=== PATIENT | male | born 1975 | race Caucasian/White ===

== ENCOUNTER → 2019-11-13 | Outpatient (CLI) | payer OTHER ==
[~2019-11-13] MED LIST: COLA100C5 PO; LISI-538 PO; NOXI1TAB PO; OMEP40CA97 PO; ROSU20TA5 PO
== END ==
LOC: M LABSMTC 11:27
PROVIDERS: ATTEND Anesthesiology
DX: Z01.818 Encounter for other preprocedural examination (principal); Z11.59 Encounter for screening for other viral diseases
CPT/HCPCS: C9803; U0003

== ENCOUNTER 2019-11-16 11:09 | Day surgery (SDC) | payer OTHER ==
[~2019-11-16] VITALS: Ht 188 cm; Wt 102.9 kg
[~2019-11-16 11:09] MED LIST changes: +NS 1,000 ML IV ONE
[2019-11-16] MEDS ORDERED: propofoL 200 MG/20 ML VIAL As Ordered ONE ×2 (11:41→12:30)
[2019-11-16] MEDS ORDERED: LIDOCAINE 2% 100MG/5ML SDV (FOR ANES.) As Ordered ONE (12:07)
[2019-11-16] MEDS ORDERED: fentaNYL 100 MCG/2 ML INJECTION (J3010) As Ordered ONE (12:30)
--- NOTE | 2019-11-16 12:49 | ROOR ---
Patient Name: Bobby Begum Procedure Date: 11/16/2019 12:29 PM Date of : 1975 Age: 43 Room: [facility] Gender: Male Note Status: Finalized Procedure: Upper Endoscopy + Biopsies Indications: Heartburn, Exclusion of De Leon's esophagus Providers: Madan Reyes MD Referring MD: [facility], Admin. Requesting Provider: Medicines: Monitored Anesthesia Care Complications: No immediate complications. Procedure: Pre-Anesthesia Assessment: - The heart rate, respiratory rate, oxygen saturations, blood pressure, adequacy of pulmonary ventilation, and response to care were monitored throughout the procedure. The Endoscope was introduced through the mouth, and advanced to the second part of duodenum. The upper GI endoscopy was accomplished without difficulty. The patient tolerated the procedure well. Findings: The Z-line was irregular and was found 40 cm from the incisors. Multiple biopsies were obtained with cold forceps for evaluation to rule out De Leon's Esophagus randomly at the gastroesophageal junction. A small hiatal hernia was present. No other significant abnormalities were identified in a careful examination of the stomach. Biopsies were taken with a cold forceps in the gastric antrum for Helicobacter pylori testing. The exam of the duodenum was otherwise normal. Impression: - Z-line irregular, 40 cm from the incisors. - Small hiatal hernia. - Multiple biopsies were obtained at the gastroesophageal junction. - Biopsies were taken with a cold forceps for Helicobacter pylori testing. - The examination was otherwise normal. Recommendation: - Patient has a contact number available for emergencies. The signs and symptoms of potential delayed complications were discussed with the patient. Return to normal activities tomorrow. Written discharge instructions were provided to the patient. - High fiber diet. - Discharge patient to home. - Follow an antireflux regimen. - Continue present medications. - Await pathology results. - Telephone GI clinic for pathology results in 1 week. - Return to referring physician. - The findings and recommendations were discussed with the patient's family. Madan Reyes MD Madan Reyes MD 11/16/2019 12:49:27 PM Electronically signed by Madan Reyes MD Number of Addenda: 0 Note Initiated On: 11/16/2019 12:29 PM Estimated Blood Loss: Estimated blood loss: none.
--- NOTE | 2019-11-16 13:07 | ROOR ---
Patient Name: Bobby Begum Procedure Date: 11/16/2019 12:30 PM Date of : 1975 Age: 43 Room: [facility] Gender: Male Note Status: Finalized Procedure: Total Colonoscopy to Cecum + ileoscopy + Bx Indications: Rectal bleeding, Abdominal pain, Change in bowel habits Providers: Madan Reyes MD Referring MD: [facility], Admin. Requesting Provider: Medicines: Monitored Anesthesia Care Complications: No immediate complications. Procedure: Pre-Anesthesia Assessment: - The heart rate, respiratory rate, oxygen saturations, blood pressure, adequacy of pulmonary ventilation, and response to care were monitored throughout the procedure. The Colonoscope was introduced through the anus and advanced to the terminal ileum, with identification of the appendiceal orifice and IC valve. The colonoscopy was performed without difficulty. The patient tolerated the procedure well. The quality of the bowel preparation was excellent. Findings: The perianal and digital rectal examinations were normal. Non-bleeding internal hemorrhoids were found during retroflexion. The hemorrhoids were small and Grade I (internal hemorrhoids that do not prolapse). Multiple small and large-mouthed diverticula were found in the recto-sigmoid colon, sigmoid colon and descending colon. Biopsies for histology were taken with a cold forceps from the ascending colon, transverse colon and descending colon for evaluation of microscopic colitis. The terminal ileum appeared normal. The exam was otherwise without abnormality on direct and retroflexion views. Impression: - Non-bleeding internal hemorrhoids. - Diverticulosis in the recto-sigmoid colon, in the sigmoid colon and in the descending colon. - The examined portion of the ileum was normal. - The examination was otherwise normal on direct and retroflexion views. - Biopsies were taken with a cold forceps from the ascending colon, transverse colon and descending colon for evaluation of microscopic colitis. - The exam was otherwise normal to the cecum. Recommendation: - Patient has a contact number available for emergencies. The signs and symptoms of potential delayed complications were discussed with the patient. Return to normal activities tomorrow. Written discharge instructions were provided to the patient. - High fiber diet. - Discharge patient to home. - Continue present medications. - Await pathology results. - Telephone GI clinic for pathology results in 1 week. - Return to referring physician. - Repeat colonoscopy in 10 years for screening purposes. - The findings and recommendations were discussed with the patient's family. Madan Reyes MD Madan Reyes MD 11/16/2019 1:07:30 PM Electronically signed by Madan Reyes MD Number of Addenda: 0 Note Initiated On: 11/16/2019 12:30 PM Estimated Blood Loss: Estimated blood loss: none.
[2019-11-16 13:43] VITALS: BP 142/80
== END 2019-11-16 13:43 | disposition home or self-care (01) ==
LOC: M OPP 11:09
PROVIDERS: ATTEND Internal Medicine Gastroenterology
DX: K57.30 Diverticulosis of large intestine without perforation or abscess without bleeding (principal); K64.0 First degree hemorrhoids; K62.5 Hemorrhage of anus and rectum; R10.9 Unspecified abdominal pain; R19.4 Change in bowel habit; K22.8 Other specified diseases of esophagus; K44.9 Diaphragmatic hernia without obstruction or gangrene; R12 Heartburn; K21.9 Gastro-esophageal reflux disease without esophagitis; I10 Essential (primary) hypertension; Z79.899 Other long term (current) drug therapy; Z87.891 Personal history of nicotine dependence
CPT/HCPCS: 43239; 45380; 88305; J3010

== ENCOUNTER → 2022-05-21 | Outpatient (CLI) | payer OTHER ==
[~2022-05-21] MED LIST changes: +ACET650S3 PR; +CELE1CAP9 PO; +D31000CA4 PO; +FERR32TA PO; -LISI-538 PO; +LISI20TA33 PO; +METO1TAB7 PO; -NS 1,000 ML IV ONE; +OMEP40CA4 PO; -OMEP40CA97 PO; +VITMTA PO
== END ==
LOC: M LABSMTC 09:46
PROVIDERS: ATTEND Anesthesiology
DX: Z01.812 Encounter for preprocedural laboratory examination (principal); Z11.52 Encounter for screening for COVID-19

== ENCOUNTER 2022-05-26 11:11 | Day surgery (SDC) | payer OTHER ==
[~2022-05-26] VITALS: Ht 188 cm; Wt 119.3 kg
[~2022-05-26 11:11] MED LIST changes: +NS 1,000 ML IV ONE
[2022-05-26] MEDS ORDERED: propofoL 200 MG/20 ML VIAL As Ordered ONE ×2 (12:46→12:49)
[2022-05-26] MEDS ORDERED: LIDOCAINE 2% 100MG/5ML SDV (FOR ANES.) As Ordered ONE (12:46)
[2022-05-26] MEDS ORDERED: fentaNYL 100 MCG/2 ML INJECTION As Ordered ONE (12:47)
[2022-05-26 13:25] VITALS: BP 130/70
== END 2022-05-26 13:32 | disposition home or self-care (01) ==
LOC: M OPP 11:11
PROVIDERS: ATTEND Internal Medicine Gastroenterology
DX: K22.89 Other specified disease of esophagus (principal); K44.9 Diaphragmatic hernia without obstruction or gangrene; K22.70 Barrett's esophagus without dysplasia; K31.A11 Gastric intestinal metaplasia without dysplasia, involving the antrum; K29.70 Gastritis, unspecified, without bleeding; Z79.1 Long term (current) use of non-steroidal anti-inflammatories (NSAID); Z79.2 Long term (current) use of antibiotics; Z79.899 Other long term (current) drug therapy; I10 Essential (primary) hypertension; E78.00 Pure hypercholesterolemia, unspecified; F32.9 Major depressive disorder, single episode, unspecified; F41.9 Anxiety disorder, unspecified
CPT/HCPCS: 43239; 88305; J3010